=== PATIENT | male | born 2000 | race Caucasian/White ===

== ENCOUNTER 2021-05-17 04:12 | Emergency (ER) | payer OTHER ==
[~2021-05-17] VITALS: Ht 177.8 cm; Wt 82.3 kg
--- NOTE | 2021-05-17 05:53 | REPVR ---
PROCEDURE INFORMATION: Exam: CT Head Without Contrast Exam date and time: 05/17/2021 4:31 AM Age: 20 years old Clinical indication: Injury or trauma; Fall; Blunt trauma (contusions or hematomas); Additional info: Head injury fall TECHNIQUE: Imaging protocol: Computed tomography of the head without contrast. Radiation optimization: All CT scans at this facility use at least one of these dose optimization techniques: automated exposure control; mA and/or kV adjustment per patient size (includes targeted exams where dose is matched to clinical indication); or iterative reconstruction. COMPARISON: No relevant prior studies available. FINDINGS: Limitations: There is beam hardening artifact affecting the more inferior images. Brain: The cortical/white matter interfaces are preserved throughout the brain. There is no evidence of intracranial hemorrhage. Cerebral ventricles: The ventricular system is normal in size and configuration. Paranasal sinuses: There is a benign sinus mucous retention cyst or polyp partially included in the left maxillary sinus. No fluid levels. Mastoid air cells: The mastoid air cells are clear. Bones/joints: No acute fractures of the skull are identified. Soft tissues: There is a small defect in the soft tissues in the high left frontal region and associated mild soft tissue swelling, consistent with a laceration. IMPRESSION: 1. High left frontal laceration and soft tissue swelling. 2. No evidence of acute intracranial injury. Electronically signed by: Elvia Noble On 05/17/2021 05:53:07 AM
--- NOTE | 2021-05-17 05:56 | REPVR ---
PROCEDURE INFORMATION: Exam: CT Cervical Spine Without Contrast Exam date and time: 05/17/2021 4:31 AM Age: 20 years old Clinical indication: Injury or trauma; Fall; Blunt trauma; Additional info: Head injury fall TECHNIQUE: Imaging protocol: Computed tomography images of the cervical spine without contrast. Radiation optimization: All CT scans at this facility use at least one of these dose optimization techniques: automated exposure control; mA and/or kV adjustment per patient size (includes targeted exams where dose is matched to clinical indication); or iterative reconstruction. COMPARISON: No relevant prior studies available. FINDINGS: Bones/joints: There is straightening of the cervical lordosis without subluxations. There is no evidence of acute fracture. There is mild uncovertebral ridging at C5-C6. Discs/Spinal canal/Neural foramina: No significant spinal canal stenosis is seen. No disc bulges or disc protrusions are identified. Prevertebral Space: The prevertebral soft tissues appear normal. Lungs: The visualized lung apices are clear. Soft tissues: The paraspinous soft tissues appear unremarkable. IMPRESSION: No acute fractures or subluxations identified. Electronically signed by: Elvia Noble On 05/17/2021 05:56:31 AM
[2021-05-17 08:20] VITALS: BP 142/73
== END 2021-05-17 08:22 | disposition home or self-care (01) ==
LOC: M ED 04:12
DX: S01.01XA Laceration without foreign body of scalp, initial encounter (principal); W10.8XXA Fall (on) (from) other stairs and steps, initial encounter; Y92.89 Other specified places as the place of occurrence of the external cause; Z77.098 Contact with and (suspected) exposure to other hazardous, chiefly nonmedicinal, chemicals

== ENCOUNTER 2021-08-08 15:41 | Emergency (ER) | payer OTHER ==
[~2021-08-08] VITALS: Ht 177.8 cm; Wt 81.3 kg
[2021-08-08 15:43] VITALS: BP 129/71
--- NOTE | 2021-08-08 20:24 | REPVR ---
PROCEDURE INFORMATION: Exam: XR Left Knee Exam date and time: 08/08/2021 5:52 PM Age: 21 years old Clinical indication: Pain; Knee; Left; Additional info: Tenderness lfc, patellar tendon, remote injury TECHNIQUE: Imaging protocol: XR Left knee. Views: 4 or more views. COMPARISON: No relevant prior studies available. FINDINGS: Bones/joints: Normal. Soft tissues: Normal. IMPRESSION: Negative left knee. Electronically signed by: Brenton Arnold On 08/08/2021 20:24:19 PM
== END 2021-08-08 18:58 | disposition left against medical advice (07) ==
LOC: M ED 15:41
DX: M25.562 Pain in left knee (principal)